=== PATIENT | female | born 1995 | race Hispanic/Latino ===

== ENCOUNTER 2022-07-14 18:17 | Emergency (ER) | payer SELFPAY ==
[2022-07-14] MEDS ORDERED: FLUORESCEIN SODIUM 1 MG/WRAP ONE (19:29)
[2022-07-14] MEDS ORDERED: TETRACAINE HCL 0.5% 4ML OPTH ONE (19:29)
[2022-07-14] MEDS ORDERED: GENTAMICIN 0.3% OPTH DROP 5ML ONE (19:59)
--- NOTE | 2022-07-14 20:04 | ER ---
Nurse's Notes [facility] Name: Leandra Sommers Age: 26 yrs Sex: Female : 1995 Arrival Date: 07/14/2022 Time: 18:20 Bed 12 Private MD: Diagnosis: Injury of conjunctiva and corneal abrasion without foreign body, right eye Presentation: 07/14 19:01 Chief complaint: Patient states: around 1300 was folding a blanket and is unsure if vg1 something went into Right eye; stated "it feels like something is in there" Right eye appears to be red and swollen. Coronavirus screen: Vaccine status: Patient reports being unvaccinated. Client denies travel out of the [place] in the last 14 days. Ebola Screen: Patient negative for fever greater than or equal to 101.5 degrees Fahrenheit, and additional compatible Ebola Virus Disease symptoms Patient denies exposure to infectious person. Initial Sepsis Screen: Does the patient meet any 2 criteria? No. Patient's initial sepsis screen is negative. Does the patient have a suspected source of infection? No. Patient's initial sepsis screen is negative. Risk Assessment: Do you want to hurt yourself or someone else? Patient reports no desire to harm self or others. Onset of symptoms was July 14, 2022. 19:01 Method Of Arrival: Ambulatory vg1 19:01 Acuity: YAN 4 vg1 Triage Assessment: 19:05 General: Appears uncomfortable, Behavior is calm, cooperative. Pain: Complains of pain vg1 in right eye Pain currently is 8 out of 10 on a pain scale. EENT: Eyes are tearing on Right eye. 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 - Social history:: Smoking status: Patient denies any tobacco usage or history of. Screenin:24 [facility] ED Fall Risk Assessment (Adult) History of falling in the last 3 months, ke1 including since admission No falls in past 3 months (0 pts) Confusion or Disorientation No (0 pts) Intoxicated or Sedated No (0 pts) Impaired Gait No (0 pts) Mobility Assist Device Used No (0 pt) Altered Elimination No (0 pt) Score/Fall Risk Level 0 - 2 = Low Risk Oriented to surroundings, Maintained a safe environment. Abuse screen: Denies threats or abuse. Nutritional screening: No deficits noted. Tuberculosis screening: No symptoms or risk factors identified. Assessment: 19:36 Reassessment: Patient is alert/active/playful, equal unlabored respirations, skin ke1 warm/dry/pink. Patient denies pain at this time. 20:01 Reassessment: Patient and/or family updated on plan of care and expected duration. Pain ke1 level reassessed. Patient is alert, oriented x 3, equal unlabored respirations, skin warm/dry/pink. Vital Signs: 19:01 BP 125 / 88; Pulse 70; Resp 16; Temp 98.5(O); Pulse Ox 100% on R/A; Weight 90.72 kg; vg1 Height 5 ft. 3 in. (160.02 cm); Pain 8/10; 20:19 BP 122 / 84; Pulse 71; Resp 17; Temp 98.4; Pulse Ox 100% ; Pain 0/10; ke1 19:01 Body Mass Index 35.43 (90.72 kg, 160.02 cm) vg1 Visual Acuity: 19:34 Left Eye Visual acuity 20/20, Normal, React To Light, Reactive To Accomodation; Right ke1 Eye Visual acuity 20/20, Normal, React To Light, Reactive To Accomodation; Both Eyes Visual acuity 20/20; Without Lenses; ED Course: 18:20 Patient arrived in ED. as 18:51 Abdullahi Garcia PA is PHCP. cp 18:51 Taiwo Guzman MD is Attending Physician. cp 19:05 Triage completed. vg1 19:05 Arm band placed on. vg1 19:11 Beena Venegas, MAX is Primary Nurse. ke1 19:24 Patient has correct armband on for positive identification. Bed in low position. Call [facility] light in reach. 20:03 Heike Yates MD is Referral Physician. cp 20:20 Assist provider with eye exam of right eye. using fluorescein stain, Performed by Abdullahi ke Radha JACKSON Patient tolerated well. Patient did not have IV access during this emergency room visit. Administered Medications: 19:53 Drug: Tetracaine Drops 0.5 % 1 drops {Note: by provider.} Route: Ophthalmic; Site: ke1 right eye; 20:01 Drug: Gentamicin Drops 0.3 % 1 drops Route: Ophthalmic; Site: right eye; ke1 Medication: 20:21 VIS not applicable for this client. ke1 Outcome: 20:03 Discharge ordered by . sukhi 20:20 Discharged to home ambulatory. ke1 20:20 Condition: good 20:20 Discharge instructions given to patient. 20:21 Patient left the ED. ke1 Signatures: Nasra Dodd Corey, PA PA cp Garcia, Victoria, RN RN vg1 Beena Venegas RN RN ke1
--- NOTE | 2022-07-14 20:04 | EDPHYS ---
Physician Documentation [facility] Name: Leandra Sommers Age: 26 yrs Sex: Female : 1995 Arrival Date: 07/14/2022 Time: 18:20 Bed 12 Private MD: ED Physician Taiwo Guzman HPI: 07/14 19:30 This 26 yrs old Female presents to ER via Ambulatory with complaints of cp Redness of Eye. 19:30 The patient is experiencing foreign body sensation, pain, redness. Onset: The cp symptoms/episode began/occurred today. Duration: the symptoms are continuous. Associated signs and symptoms: Pertinent negatives: drainage. Patient does not utilize any form of vision correction. Patient reports she shook blanket out and felt like something went into right eye. 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 - Social history:: Smoking status: Patient denies any tobacco usage or history of. ROS: 19:35 Constitutional: Negative for body aches, chills, fever, poor PO intake. cp 19:35 Eyes: Positive for foreign body sensation, pain, redness, of the right eye, Negative cp for discharge, visual disturbance. 19:35 ENT: Negative for drainage from ear(s), ear pain, sore throat, difficulty swallowing, difficulty handling secretions. 19:35 Respiratory: Negative for cough. 19:35 Skin: Negative for cellulitis, rash. 19:35 Neuro: Negative for headache. 19:35 All other systems are negative. Exam: 19:40 Constitutional: The patient appears in no acute distress, alert, awake, non-toxic, well cp developed, well nourished. 19:40 Head/Face: Normocephalic, atraumatic. cp 19:40 Eyes: Periorbital structures: appear normal, Pupils: equal, round, and reactive to light and accomodation, Extraocular movements: intact throughout, Conjunctiva: injected, in the right eye, Corneas: abrasion, that is small, on the right, at 12 o'clock, foreign body, is not appreciated, a fluorescein strip employed to appreciate the findings, Sclera: no appreciated abnormality, Lids and lashes: appear normal, on the right, Examination of the other eye reveals no obvious gross abnormality. 19:40 ENT: External ear(s): are unremarkable, Nose: is normal, Mouth: Lips: moist, Oral mucosa: moist, Posterior pharynx: Airway: no evidence of obstruction, patent. 19:40 Neck: ROM/movement: is normal, is supple, without pain, no range of motions limitations, Lymph nodes: no appreciated lymphadenopathy. 19:40 Cardiovascular: Rate: normal. 19:40 Respiratory: the patient does not display signs of respiratory distress, Respirations: normal, no use of accessory muscles, no retractions, labored breathing. 19:40 Skin: cellulitis, is not appreciated, no rash present. 19:45 Visual Acuity: I have reviewed the nursing documentation. Vital Signs: 19:01 BP 125 / 88; Pulse 70; Resp 16; Temp 98.5(O); Pulse Ox 100% on R/A; Weight 90.72 kg; vg1 Height 5 ft. 3 in. (160.02 cm); Pain 8/10; 20:19 BP 122 / 84; Pulse 71; Resp 17; Temp 98.4; Pulse Ox 100% ; Pain 0/10; ke1 19:01 Body Mass Index 35.43 (90.72 kg, 160.02 cm) vg1 Visual Acuity: 19:34 Left Eye Visual acuity 20/20, Normal, React To Light, Reactive To Accomodation; Right ke1 Eye Visual acuity 20/20, Normal, React To Light, Reactive To Accomodation; Both Eyes Visual acuity 20/20; Without Lenses; MDM: 19:08 Patient medically screened. cp 20:02 Data reviewed: vital signs, nurses notes. 20:02 Consideration of Admission/Observation Escalation of care including cp admission/observation considered. I considered the following discharge prescriptions or medication management in the emergency department Medications were administered in the Emergency Department. See MAR. Counseling: I had a detailed discussion with the patient and/or guardian regarding: the historical points, exam findings, and any diagnostic results supporting the discharge/admit diagnosis, the need for outpatient follow up, an opthalmologist, to return to the emergency department if symptoms worsen or persist or if there are any questions or concerns that arise at home. Response to treatment: the patient's symptoms have markedly improved after treatment, and as a result, I will discharge patient. 07/14 19:23 Order name: Eye Tray; Complete Time: 19:28 cp 07/14 19:23 Order name: Fluoresene Opth strip; Complete Time: 19:28 cp 07/14 18: Order name: Visual Acuity; Complete Time: :53 cp Administered Medications: :53 Drug: Tetracaine Drops 0.5 % 1 drops {Note: by provider.} Route: Ophthalmic; Site: [facility] right eye; 20:01 Drug: Gentamicin Drops 0.3 % 1 drops Route: Ophthalmic; Site: right eye; [facility] Disposition Summary: 07/14/22 20:03 Discharge Ordered Location: Home cp Problem: new cp Symptoms: have improved cp Condition: Stable cp Diagnosis - Injury of conjunctiva and corneal abrasion without foreign body, right eye cp Followup: cp - With: Heike Yates MD - When: 1 - 2 days - Reason: Recheck today's complaints Discharge Instructions: - Discharge Summary Sheet cp - Corneal Abrasion cp Forms: - Medication Reconciliation Form cp - Thank You Letter cp - Antibiotic Education cp - Prescription Opioid Use cp Prescriptions: - Gentamicin 0.3 % Ophthalmic Drops - instill 1 drop by OPHTHALMIC route every 4 hours for 7 days; 1 bottle; Refills: cp 0, Product Selection Permitted - Ibuprofen 800 mg Oral Tablet - take 1 tablet by ORAL route every 8 hours As needed take with food; 30 tablet; cp Refills: 0, Product Selection Permitted Addendum: 07/16/2022 01:04 Co-signature as Attending Physician, Taiwo Guzman MD I reviewed the patient's care r n provided by the Advanced Practice Provider and agree with the diagnosis and treatment plan. Signatures: Taiwo Guzman MD MD rn Page, Corey, PA PA cp Garcia, Victoria, RN RN vg1 Beena Venegas RN RN ke1
[2022-07-14 20:47] VITALS: O2SAT 100
[2022-07-14 20:59] VITALS: BP 122/84; TEMP 98.4
== END 2022-07-14 20:21 | disposition home or self-care (01) ==
LOC: ER 18:17
DX: S05.01XA Injury of conjunctiva and corneal abrasion without foreign body, right eye, initial encounter (principal)
CPT/HCPCS: 99283

== ENCOUNTER 2023-09-24 20:02 | Emergency (ER) | payer SELFPAY ==
[2023-09-24] MEDS ORDERED: NA CHLORIDE 0.9% 1,000 ML ONE (21:00)
[2023-09-24] MEDS ORDERED: ONDANSETRON 4 MG/2 ML VIAL ONE (21:00)
[2023-09-24 21:11] LABS: Absolute Eosinophils 0.2 K/uL (0-0.5); Absolute Lymphocytes (CBC) 3.1 K/uL (0.7-4.9); Absolute Monocytes 0.3 K/uL (0.1-1.3); Absolute Neutrophil 4.4 K/uL (1.8-8.0); Basophils % 0.6 % (0-1.3); Eosinophils % 1.9 % (0-4.4); Hematocrit 36.4 % (36.0-45.0); Hemoglobin 12.7 g/dL (12.0-15.0); Lymphocytes % 39.2 % (15.3-44.8); MCH 33.5 pg (27.0-35.0); MCV 95.6 fL (80-100); MPV 8.2 fL (7.6-11.3); Monocytes % 3.5 % (3.3-12.3); Neutrophils % 54.8 % (41.7-73.7); Nucleated Red Blood Cells % 0.1 % (0-0); Platelets 217 thou/uL (152-406); Red Cell Distribution Width 12.9 % (12.1-15.2)
[2023-09-24 21:39] LABS: Albumin 4.1 g/dL (3.4-5.0); Albumin/Globulin Ratio 1.1 (1.1-1.8); Anion Gap 8.2 mEq/L (5.0-15.0); Globulin 3.7 g/dL (2.3-3.5); Potassium 3.2 mEq/L (3.5-5.1); Protein, Total 7.8 g/dL (6.4-8.2)
--- NOTE | 2023-09-24 23:11 | EDPHYS ---
Physician Documentation [facility] Name: Leandra Sommers Age: 27 yrs Sex: Female : 1995 Arrival Date: 09/24/2023 Time: 20:02 Bed 6 Private MD: ED Physician Abdullahi Man HPI: 09/23 23:07 This 27 yrs old Female presents to ER via Wheelchair with complaints of kb Nausea/Vomiting. 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 Denies abd pain.. Historical: - Allergies: 20:17 No Known Allergies; mb9 - Home Meds: 20:17 None [Active]; mb9 - PMHx: 20:17 Hyperthyriodism; mb9 - PSHx: 20:17 None; mb9 - Immunization history:: Adult Immunizations up to date. - Infectious Disease History:: Denies. - Social history:: Smoking status: Patient denies any tobacco usage or history of. ROS: 23:07 Constitutional: As per HPI kb Exam: 23:07 Constitutional: This is a well developed, well nourished patient who is awake, alert, kb and in no acute distress. Head/Face: Normocephalic, atraumatic. ENT: Moist Mucous membranes Cardiovascular: Regular rate Respiratory: Respirations even and unlabored. No increased work of breathing. Talking in full sentences Abdomen/GI: Soft, non-tender. No distention Skin: Warm, dry with normal turgor. Normal color. MS/ Extremity: Pulses equal, no cyanosis. Neurovascular intact. Full, normal range of motion. Neuro: Awake and alert, GCS 15, oriented to person, place, time, and situation. Moves all extremities. Normal gait. Vital Signs: 20:17 BP 120 / 94; Pulse 79; Resp 14; Temp 98.2; Pulse Ox 100% on R/A; Weight 74.84 kg; mb9 Height 5 ft. 3 in. ; 22:30 BP 135 / 89; Pulse 100; Resp 16; Pulse Ox 100% on R/A; jb4 23:47 BP 123 / 82; Pulse 73; Resp 16; Pulse Ox 97% on R/A; jb4 20:17 Body Mass Index 29.23 (74.84 kg, 160.02 cm) mb9 MDM: 20:13 Patient medically screened. kb 23:07 Differential diagnosis: abnormal electrolytes, drug abuse. Data reviewed: vital signs, kb nurses notes. Historians other than the Patient: Spouse/Significant Other: sig other. Counseling: I had a detailed discussion with the patient and/or guardian regarding the historical points, exam findings, and any diagnostic results supporting the discharge/admit diagnosis, lab results, the need for outpatient follow up, a family practitioner, to return to the emergency department if symptoms worsen or persist or if there are any questions or concerns that arise at home. 23:09 ED course: Pt is feeling better after treatment. Stable for discharge home. kb 09/23 20:22 Order name: CBC with Diff; Complete Time: 21:14 kb 09/23 20:22 Order name: CMP; Complete Time: 21:41 kb Administered Medications: 21:05 Drug: NS 0.9% IV 1000 ml IV at 1000 ml once Route: IV; Rate: 1000 ml; Site: right jb4 antecubital; 22:30 Follow up: IV Status: Completed infusion; IV Intake: 1000ml jl7 21:05 Drug: Ondansetron IVP 4 mg IVP once; over 2 minutes Route: IVP; Site: right antecubital;jb4 Disposition Summary: 09/24/23 23:10 Discharge Ordered Notes: Location: Home kb Condition: Stable kb Diagnosis - Adverse effect of other psychotropic drugs kb Followup: kb - With: Emergency Department - When: As needed - Reason: Worsening of condition Followup: kb - With: Private Physician - When: 2 - 3 days - Reason: Recheck today's complaints, Continuance of care, Re-evaluation by your physician Discharge Instructions: - Discharge Summary Sheet kb - Illegal Drug Use Information, Adult kb Forms: - Medication Reconciliation Form kb - Thank You Letter kb - Antibiotic Education kb - Prescription Opioid Use kb - Patient Portal Instructions kb - Leadership Thank You Letter kb Signatures: Dispatcher [employer] Miya Simmons FNP-C FNP-Bassem Gibson RN RN jb4 Michelle Willingham RN RN mb9 Kelli Curiel RN jl7
--- NOTE | 2023-09-24 23:11 | ER ---
Nurse's Notes [facility] Name: Leandra Sommers Age: 27 yrs Sex: Female : 1995 Arrival Date: 09/24/2023 Time: 20:02 Bed 6 Private MD: Diagnosis: Adverse effect of other psychotropic drugs Presentation: 09/23 20:17 Chief complaint: Patient states: "1 hr ago, I took a CBD gummy and now i'm weak, mb9 tingling all over my body, and having N/V". Coronavirus screen: Vaccine status: Patient reports being unvaccinated. Ebola Screen: No symptoms or risks identified at this time. Initial Sepsis Screen: Does the patient meet any 2 criteria? No. Patient's initial sepsis screen is negative. Does the patient have a suspected source of infection? No. Patient's initial sepsis screen is negative. Risk Assessment: Do you want to hurt yourself or someone else? Patient reports no desire to harm self or others. Onset of symptoms was September 24, 2023. 20:17 Acuity: YAN 2 mb9 20:17 Method Of Arrival: Wheelchair mb9 Triage Assessment: 20:18 General: Appears uncomfortable, Behavior is drowsy. Pain: Denies pain. Neuro: Level of mb9 Consciousness is obeys commands, lethargic, Oriented to person, place, time, situation. Cardiovascular: Patient's skin is warm and dry. Respiratory: Airway is patent Respiratory effort is even, unlabored, Respiratory pattern is regular, symmetrical. GI: Reports nausea, vomiting. Derm: Skin is intact, Skin is clammy, Skin is pale, Skin temperature is warm. Historical: - Allergies: 20:17 No Known Allergies; mb9 - Home Meds: 20:17 None [Active]; mb9 - PMHx: 20:17 Hyperthyriodism; mb9 - PSHx: 20:17 None; mb9 - Immunization history:: Adult Immunizations up to date. - Infectious Disease History:: Denies. - Social history:: Smoking status: Patient denies any tobacco usage or history of. Screenin:47 [facility] ED Fall Risk Assessment (Adult) History of falling in the last 3 months, jb4 including since admission No falls in past 3 months (0 pts) Confusion or Disorientation No (0 pts) Intoxicated or Sedated Yes (3 pts) Impaired Gait Yes (1 pt) Mobility Assist Device Used No (0 pt) Altered Elimination No (0 pt) Score/Fall Risk Level 3 or more points = High Risk Oriented to surroundings, Maintained a safe environment. Abuse screen: Denies threats or abuse. Nutritional screening: No deficits noted. Tuberculosis screening: No symptoms or risk factors identified. Assessment: 20:30 General: Appears in no apparent distress. comfortable, Behavior is calm, cooperative. jb4 Pain: Denies pain. Neuro: Level of Consciousness is awake, obeys commands, lethargic, Oriented to person, place, time, situation. Cardiovascular: Patient's skin is warm and dry. Respiratory: Airway is patent Respiratory effort is even, unlabored, Respiratory pattern is regular, symmetrical. GI: Abdomen is non-distended, obese. : No signs and/or symptoms were reported regarding the genitourinary system. EENT: No signs and/or symptoms were reported regarding the EENT system. Derm: Skin is intact, Skin is pink, warm \\T\\ dry. Musculoskeletal: Circulation, motion, and sensation intact. Range of motion: intact in all extremities. 21:30 Reassessment: Pt is resting in bed with eyes closed, respirations are even and jb4 unlabored with no s/s of pain or distress noted. 22:30 Reassessment: Patient appears in no apparent distress at this time. No changes from jb4 previously documented assessment. Patient and/or family updated on plan of care and expected duration. Pain level reassessed. 23:47 Reassessment: Patient appears in no apparent distress at this time. Patient and/or jb4 family updated on plan of care and expected duration. Pain level reassessed. Patient is alert, oriented x 3, equal unlabored respirations, skin warm/dry/pink. Patient states feeling better. Vital Signs: 20:17 BP 120 / 94; Pulse 79; Resp 14; Temp 98.2; Pulse Ox 100% on R/A; Weight 74.84 kg; mb9 Height 5 ft. 3 in. ; 22:30 BP 135 / 89; Pulse 100; Resp 16; Pulse Ox 100% on R/A; jb4 23:47 BP 123 / 82; Pulse 73; Resp 16; Pulse Ox 97% on R/A; jb4 20:17 Body Mass Index 29.23 (74.84 kg, 160.02 cm) mb9 ED Course: 20:09 Patient arrived in ED. gm2 20:12 Miya Del Toro FNP-C [facility]. kb 20:12 Abdullahi Man MD is Attending Physician. kb 20:16 Arm band placed on. mb9 20:18 Triage completed. mb9 20:56 Initial lab(s) drawn, by ut, sent to lab. Inserted saline lock: 18 gauge in right jb4 antecubital area, using aseptic technique. Blood collected. 21:05 Bassem Rapp, RN is Primary Nurse. jb4 21:05 CBC with Diff Sent. jb4 21:05 CMP Sent. jb4 23:47 Patient has correct armband on for positive identification. Bed in low position. Call jb4 light in reach. Side rails up X2. Provided Education on: discharge instructions. 23:47 No provider procedures requiring assistance completed. IV discontinued, intact, jb4 bleeding controlled, No redness/swelling at site. Pressure dressing applied. Administered Medications: 21:05 Drug: NS 0.9% IV 1000 ml IV at 1000 ml once Route: IV; Rate: 1000 ml; Site: right jb4 antecubital; 22:30 Follow up: IV Status: Completed infusion; IV Intake: 1000ml jl7 21:05 Drug: Ondansetron IVP 4 mg IVP once; over 2 minutes Route: IVP; Site: right antecubital;jb4 Medication: 23:49 VIS not applicable for this client. jb4 Intake: 22:30 IV: 1000ml; Total: 1000ml. jl7 Outcome: 23:10 Discharge ordered by . ankit 23:48 Discharged to home via wheelchair, with family, jb4 23:48 Condition: stable 23:48 Discharge instructions given to patient, family, Instructed on discharge instructions, follow up and referral plans. Demonstrated understanding of instructions, follow-up care, 23:49 Patient left the ED. jb4 Signatures: Miya Del Toro FNP-C FNP-Ckb Bryson, James, RN MAX jb4 Kelli Curiel RN RN jl7 Michelle Willingham RN RN mb9 Madhuri Aleman gm2
[2023-09-25 00:15] VITALS: BP 123/82; TEMP 98.2; O2SAT 97
== END 2023-09-24 23:49 | disposition home or self-care (01) ==
LOC: ER 20:02
DX: R11.2 Nausea with vomiting, unspecified (principal); T43.8X5A Adverse effect of other psychotropic drugs, initial encounter
CPT/HCPCS: 36415; 80053; 85025; J2405; J7030